=== PATIENT | female | born 1960 | race Caucasian/White ===

== ENCOUNTER 2020-07-09 17:48 | Inpatient (IN) ==
[2020-07-09 18:27] LABS: Bilirubin,Urine Negative (Negative); Blood,Urine Negative (Negative); Clarity,Urine Clear (Clear); Color,Urine Yellow (Yellow); Glucose,Urine (UA) Normal (Normal); Ketones,Urine Negative (Negative); Leukocyte Esterase,Urine Negative (Negative); Nitrite,Urine Negative (Negative); Protein,Urine Negative (Neg-Trace); Specific Gravity,Urine >= 1.030 (1.010-1.025); Urobilinogen,Urine Normal (Normal)
[2020-07-09 18:34] LABS: Amphetamine Screen,Urine Negative ng/mL (Cutoff=1000); Barbiturate Screen,Urine Negative ng/mL (Cutoff=200); Benzodiazepines Screen,Urine Negative ng/mL (Cutoff=200); Cannabinoid Screen,Urine Negative ng/mL (Cutoff = 50); Cocaine Screen,Urine Negative ng/mL (Cutoff= 300); Opiate Screen,Urine Negative ng/mL (Cutoff=300); Phencyclidine Screen,Urine Negative ng/mL (Cutoff=25)
[2020-07-09 18:58] LABS: Acetaminophen < 10 mcg/mL (10-20); BUN/Creatinine Ratio 32 (6-26); Blood Urea Nitrogen 19 mg/dL (8-23); Carbon Dioxide 22 mEq/L (23-29); Chloride 107 mEq/L (98-107); Chol/HDL Ratio 3.8 (0-4.9); Cholesterol 172 mg/dL (< 200); Ethanol < 10 mg/dL (Less than 10); Glucose 100 mg/dL (70-105); HDL Cholesterol 45 mg/dL (40-59); LDL Cholesterol,Calculated 90 mg/dL (< 100); Osmolality,Calculated 290 (280-300); Potassium 4.1 mEq/L (3.5-5.1); Salicylate < 2.5 mg/dL (15.0-30.0); Sodium 139 mEq/L (136-145); Triglycerides 183 mg/dL (< 150); eGFR For African Americans > 60 (> 60); eGFR For Non-African Americans > 60 (> 60)
[2020-07-09 21:10] LABS: Red Cell Distribution Width 13.8 % (11.5-14.5)
[2020-07-09 21:12] LABS: Basophils # 0.1 K/mcL (0.0-0.2); Basophils % 0.8 %; Eosinophils # 0.1 K/mcL (0.0-0.6); Eosinophils % 1.4 %; Hematocrit 46.2 % (35.3-44.9); Hemoglobin 14.6 g/dL (11.5-15.4); Immature Granulocytes % 0.2 % (0-4); Lymphocytes # 1.7 K/mcL (0.6-4.6); Lymphocytes % 24.8 %; Mean Corpuscular HGB Conc 31.6 g/dL (31.6-35.5); Mean Corpuscular Hemoglobin 28.3 pg (28.0-33.3); Mean Corpuscular Volume 89.5 fL (83.0-100.0); Mean Platelet Volume 9.7 fL (9.4-12.4); Monocytes # 0.4 K/mcL (0.0-1.3); Monocytes % 5.9 %; Neutrophils # 4.5 K/mcL (1.6-8.9); Red Blood Count 5.16 M/mcL (3.82-4.97); Segmented Neutrophils % 66.9 %; White Blood Count 6.7 K/mcL (4.3-11.1)
[2020-07-09] MEDS ORDERED: *HR* LORazepam 1 MG TABLET PO PRN (23:31)
[2020-07-09] MEDS ORDERED: Haloperidol Lactate 5 MG/ML VIAL IM PRN (23:31)
[2020-07-09] MEDS ORDERED: *HR* LORazepam 2 MG/ML VIAL IM PRN (23:31)
[2020-07-09] MEDS ORDERED: Acetaminophen 325 MG TABLET PO PRN (23:31)
[2020-07-09] MEDS ORDERED: MOM Conc 10 ML UD.LIQ PO PRN (23:31)
[2020-07-09] MEDS ORDERED: haloperidoL 5 MG TABLET PO PRN (23:31)
[2020-07-09] MEDS ORDERED: hydrOXYzine pamoate 25 MG CAPSULE PO PRN (23:31)
[2020-07-10] MEDS ORDERED: Ibuprofen 400 MG TABLET PO PRN (00:29)
[2020-07-10] MEDS: *HR* Metformin 500 MG TABLET PO SCH ×2 (08:47→17:25)
[2020-07-10] MEDS: Aspirin 81 MG TAB.CHEW PO SCH (08:47)
[2020-07-10] MEDS: Fenofibrate 54 MG TABLET PO SCH (08:48)
[2020-07-10] MEDS: lisinopriL 5 MG TABLET PO SCH (08:50)
[2020-07-10 11:00] LABS: Estimated Average Glucose 140 mg/dl
[2020-07-11] MEDS: Aspirin 81 MG TAB.CHEW PO SCH (08:42)
[2020-07-11] MEDS: Fenofibrate 54 MG TABLET PO SCH (08:42)
[2020-07-11] MEDS: *HR* Metformin 500 MG TABLET PO SCH ×2 (08:42→17:33)
[2020-07-11] MEDS: lisinopriL 5 MG TABLET PO SCH (08:42)
[2020-07-11] MEDS: traZODone 50 MG TABLET PO PRN (20:54)
[2020-07-12] MEDS: Fenofibrate 54 MG TABLET PO SCH (08:11)
[2020-07-12] MEDS: Aspirin 81 MG TAB.CHEW PO SCH (08:11)
[2020-07-12] MEDS: *HR* Metformin 500 MG TABLET PO SCH ×2 (08:11→17:16)
[2020-07-12] MEDS: lisinopriL 5 MG TABLET PO SCH (08:11)
[2020-07-12] MEDS: traZODone 50 MG TABLET PO PRN (21:22)
[2020-07-13] MEDS: Aspirin 81 MG TAB.CHEW PO SCH (08:51)
[2020-07-13] MEDS: *HR* Metformin 500 MG TABLET PO SCH (08:51)
[2020-07-13] MEDS: lisinopriL 5 MG TABLET PO SCH (08:51)
[2020-07-13] MEDS: Fenofibrate 54 MG TABLET PO SCH (08:51)
[2020-07-13 09:25] VITALS: BP 111/64
[2020-07-13 09:31] LABS: Albumin 4.5 g/dL (3.5-5.7); Albumin/Globulin Ratio 1.7 (1.1-2.2); Bilirubin,Direct 0.1 mg/dL (0.0-0.2); Bilirubin,Indirect 0.6 mg/dL (0.0-1.0); Bilirubin,Total 0.7 mg/dL (0.3-1.0); Globulin 2.7 g/dL (2.4-3.5); Total Protein 7.2 g/dL (6.4-8.9)
== END 2020-07-13 12:10 | disposition home or self-care (01) | DRG 885 ==
LOC: EMEROOARM 17:48 → SUATTDRO 23:30 → 1ANU 23:30
PROVIDERS: ADMIT Psychiatry & Neurology Psychiatry; ATTEND Psychiatry & Neurology Forensic Psychiatry

== ENCOUNTER 2021-10-19 16:51 | Inpatient (IN) ==
[2021-10-19] MEDS ORDERED: Naloxone 0.4 MG/ML INJ IVP PRN (20:57)
[2021-10-19] MEDS ORDERED: Ondansetron 4 MG/2 ML VIAL IVP PRN (20:57)
[2021-10-19] MEDS ORDERED: Acetaminophen 325 MG TABLET PO PRN (20:57)
[2021-10-19] MEDS ORDERED: Melatonin 3 MG TABLET PO PRN (20:57)
[2021-10-19] MEDS: Dexamethasone Sodium Phos/PF 10 MG/ML VIAL IVP SCH (21:34)
[2021-10-19 22:04] LABS: Basophils % 0.7 %; Hematocrit 47.5 % (35.3-44.9); Hemoglobin 14.5 g/dL (11.5-15.4); Immature Granulocytes % 0.4 % (0-4); Lymphocytes # 0.6 K/mcL (0.6-4.6); Lymphocytes % 23.4 %; Mean Corpuscular HGB Conc 30.5 g/dL (31.6-35.5); Mean Corpuscular Hemoglobin 26.9 pg (28.0-33.3); Mean Corpuscular Volume 88.1 fL (83.0-100.0); Mean Platelet Volume 11.1 fL (9.4-12.4); Monocytes # 0.1 K/mcL (0.0-1.3); Monocytes % 3.3 %; Nucleated Red Blood Cells 0.7 /100 WBC (0); Platelet Count 125 K/mcL (140-400); Red Blood Count 5.39 M/mcL (3.82-4.97); Red Cell Distribution Width 14.4 % (11.5-14.5); Segmented Neutrophils % 72.2 %; White Blood Count 2.7 K/mcL (4.3-11.1)
[2021-10-19 22:12] LABS: INR 1.3; Prothrombin Time 14.3 Seconds (9.4-12.1)
[2021-10-19 22:19] LABS: Alanine Aminotransferase 22 Units/L (7-52); Albumin 3.8 g/dL (3.5-5.7); Albumin/Globulin Ratio 1.3 (1.1-2.2); Alkaline Phosphatase 35 Units/L (34-104); Aspartate Amino Transferase 31 Units/L (13-39); BUN/Creatinine Ratio 29 (6-26); Bilirubin,Total 0.9 mg/dL (0.3-1.0); Blood Urea Nitrogen 18 mg/dL (8-23); Calcium 9.1 mg/dL (8.6-10.3); Carbon Dioxide 26 mEq/L (23-29); Chloride 107 mEq/L (98-107); Globulin 2.9 g/dL (2.4-3.5); Glucose 140 mg/dL (70-105); Magnesium 2.2 mg/dL (1.6-2.6); Osmolality,Calculated 296 (280-300); Phosphorous 3.1 mg/dL (2.7-4.5); Potassium 4.3 mEq/L (3.5-5.1); Sodium 141 mEq/L (136-145); Total Protein 6.7 g/dL (6.4-8.9); eGFR For African Americans > 60 (> 60); eGFR For Non-African Americans > 60 (> 60)
[2021-10-19 22:20] LABS: C-Reactive Protein 35 mg/L (Less than 10); Lactate Dehydrogenase 281 Units/L (140-271); Troponin I < 0.03 ng/mL (< 0.04)
[2021-10-19 22:28] LABS: Platelet Clumps Few (Not Present); Platelet Estimate Normal (Normal)
[2021-10-19 22:39] LABS: Ferritin 292 ng/mL (10-120)
[2021-10-19] MEDS: Budesonide/Formoterol 160/4.5 1 PUFF INH IH SCH (23:47)
[2021-10-20] MEDS: Ipratropium 1 PUFF INHALER IH SCH ×6 (00:06→20:28)
[2021-10-20 03:26] LABS: INR 1.2; Prothrombin Time 13.7 Seconds (9.4-12.1)
[2021-10-20 03:27] LABS: C-Reactive Protein 29 mg/L (Less than 10); Chol/HDL Ratio 4.1 (0-4.9); Cholesterol 103 mg/dL (< 200); HDL Cholesterol 25 mg/dL (40-59); LDL Cholesterol,Calculated 59 mg/dL (< 100); Lactate Dehydrogenase 256 Units/L (140-271); Phosphorous 3.7 mg/dL (2.7-4.5); Triglycerides 96 mg/dL (< 150)
[2021-10-20] MEDS ORDERED: Remdesivir 200 MG in 0.9 % Sodium Chloride 100 ML IVPB ONE (04:00)
[2021-10-20 04:27] LABS: ABG Base Excess -3 mEq/L (-2 to 3); ABG HCO3 22 mEq/L (21-27); ABG Oxygen Saturation 92 % (95-98); ABG PCO2 38 mmHg (35-45); ABG PH 7.38 pH Units (7.32-7.45); ABG PO2 65 mmHg (85-104); ABG TCO2 23 mEq/L (20-26)
[2021-10-20] MEDS: *HR* Enoxaparin 40 MG/0.4 ML SYRINGE SQ SCH (04:56)
[2021-10-20 07:45] LABS: Alanine Aminotransferase 22 Units/L (7-52); Albumin 3.4 g/dL (3.5-5.7); Albumin/Globulin Ratio 1.2 (1.1-2.2); Alkaline Phosphatase 32 Units/L (34-104); Aspartate Amino Transferase 28 Units/L (13-39); BUN/Creatinine Ratio 28 (6-26); Bilirubin,Total 0.7 mg/dL (0.3-1.0); Blood Urea Nitrogen 21 mg/dL (8-23); Calcium 8.7 mg/dL (8.6-10.3); Carbon Dioxide 21 mEq/L (23-29); Chloride 108 mEq/L (98-107); Globulin 2.9 g/dL (2.4-3.5); Glucose 246 mg/dL (70-105); Osmolality,Calculated 305 (280-300); Potassium 3.9 mEq/L (3.5-5.1); Sodium 142 mEq/L (136-145); Total Protein 6.3 g/dL (6.4-8.9); eGFR For African Americans > 60 (> 60); eGFR For Non-African Americans > 60 (> 60)
[2021-10-20] MEDS: Artificial Tears SOLN 15 ML BOTTLE BOTH EYES SCH ×4 (07:50→20:15)
[2021-10-20] MEDS: Dexamethasone Sodium Phos/PF 10 MG/ML VIAL IVP SCH (07:51)
[2021-10-20] MEDS: Multivit/Ca/Min/Fe/FA 1 TAB TABLET PO SCH (07:51)
[2021-10-20] MEDS: Insulin LISPRO 300 UNITS/3 ML VIAL SUBQ SCH ×3 (07:52→17:50)
[2021-10-20] MEDS: Saliva Stimulant 44.3ml BOTTLE PO SCH ×4 (07:52→20:16)
[2021-10-20] MEDS: Saline Nasal Spray 44 ML BOTTLE NS SCH ×4 (07:52→20:15)
[2021-10-20] MEDS: Budesonide/Formoterol 160/4.5 1 PUFF INH IH SCH ×2 (08:20→20:29)
[2021-10-20] MEDS ORDERED: Chlorhexidine Rinse 15 ML MOUTHWASH MM SCH (09:00)
[2021-10-20 09:36] LABS: Ferritin 290 ng/mL (10-120)
[2021-10-20 09:58] LABS: Estimated Average Glucose 148 mg/dl; Hemoglobin A1C 6.8 %
[2021-10-20] MEDS ORDERED: Furosemide 20 MG/2 ML VIAL IVP ONE (19:34)
[2021-10-21] MEDS: Ipratropium 1 PUFF INHALER IH SCH ×6 (00:24→20:38)
[2021-10-21] MEDS: Remdesivir 100 MG in 0.9 % Sodium Chloride 100 ML IVPB SCH (04:45)
[2021-10-21] MEDS: *HR* Enoxaparin 40 MG/0.4 ML SYRINGE SQ SCH (05:04)
[2021-10-21 05:36] LABS: Basophils % 0.3 %; Hematocrit 42.6 % (35.3-44.9); Hemoglobin 13.2 g/dL (11.5-15.4); Immature Granulocytes % 0.7 % (0-4); Immature Platelets 15.4 % (1.1-6.1); Lymphocytes # 0.7 K/mcL (0.6-4.6); Lymphocytes % 11.9 %; Mean Corpuscular Hemoglobin 27.6 pg (28.0-33.3); Mean Corpuscular Volume 89.1 fL (83.0-100.0); Mean Platelet Volume 11.7 fL (9.4-12.4); Monocytes # 0.5 K/mcL (0.0-1.3); Monocytes % 7.9 %; Red Blood Count 4.78 M/mcL (3.82-4.97); Red Cell Distribution Width 14.3 % (11.5-14.5); Segmented Neutrophils % 79.2 %
[2021-10-21 05:46] LABS: Fibrinogen 485 mg/dL (169-393)
[2021-10-21 05:47] LABS: D-Dimer 370 ng/mLFEU (0-500)
[2021-10-21 05:53] LABS: Alanine Aminotransferase 21 Units/L (7-52); Albumin 3.4 g/dL (3.5-5.7); Albumin/Globulin Ratio 1.3 (1.1-2.2); Alkaline Phosphatase 30 Units/L (34-104); Aspartate Amino Transferase 21 Units/L (13-39); BUN/Creatinine Ratio 39 (6-26); Bilirubin,Total 0.5 mg/dL (0.3-1.0); Blood Urea Nitrogen 28 mg/dL (8-23); Calcium 8.9 mg/dL (8.6-10.3); Carbon Dioxide 26 mEq/L (23-29); Chloride 110 mEq/L (98-107); Globulin 2.7 g/dL (2.4-3.5); Glucose 182 mg/dL (70-105); Osmolality,Calculated 310 (280-300); Potassium 3.8 mEq/L (3.5-5.1); Sodium 145 mEq/L (136-145); Total Protein 6.1 g/dL (6.4-8.9); eGFR For African Americans > 60 (> 60); eGFR For Non-African Americans > 60 (> 60)
[2021-10-21 05:54] LABS: Magnesium 2.2 mg/dL (1.6-2.6); Phosphorous 3.7 mg/dL (2.7-4.5)
[2021-10-21 05:55] LABS: Neutrophils # 4.8 K/mcL (1.6-8.9)
[2021-10-21 05:57] LABS: Lactate Dehydrogenase 229 Units/L (140-271)
[2021-10-21 05:59] LABS: Anisocytosis 1+ (Not Present)
[2021-10-21 07:21] LABS: Mean Platelet Volume 10.4 fL (9.4-12.4)
[2021-10-21] MEDS: Budesonide/Formoterol 160/4.5 1 PUFF INH IH SCH ×2 (07:38→20:37)
[2021-10-21] MEDS: Cholecalciferol (D-3) 1,000 UNIT (25MCG) TABLET PO SCH (08:57)
[2021-10-21] MEDS: Insulin LISPRO 300 UNITS/3 ML VIAL SUBQ SCH ×3 (08:57→17:14)
[2021-10-21] MEDS: Aspirin 81 MG TAB.CHEW PO SCH (08:57)
[2021-10-21] MEDS: Furosemide 20 MG/2 ML VIAL IVP SCH (08:58)
[2021-10-21] MEDS: Multivit/Ca/Min/Fe/FA 1 TAB TABLET PO SCH (08:58)
[2021-10-21] MEDS: Dexamethasone Sodium Phos/PF 10 MG/ML VIAL IVP SCH (08:58)
[2021-10-21] MEDS ORDERED: lisinopriL 5 MG TABLET PO SCH (09:00)
[2021-10-21] MEDS: Saliva Stimulant 44.3ml BOTTLE PO SCH ×3 (11:50→20:04)
[2021-10-21] MEDS: Saline Nasal Spray 44 ML BOTTLE NS SCH ×3 (11:50→20:04)
[2021-10-21] MEDS: Artificial Tears SOLN 15 ML BOTTLE BOTH EYES SCH ×3 (11:50→20:04)
[2021-10-21 12:49] LABS: Ferritin 231 ng/mL (10-120)
[2021-10-22] MEDS: Ipratropium 1 PUFF INHALER IH SCH ×7 (00:28→23:54)
[2021-10-22] MEDS ORDERED: Ringers Solution, Lactated 500 ML IVC ONE (01:15)
[2021-10-22 02:49] LABS: Alanine Aminotransferase 20 Units/L (7-52); Albumin 3.2 g/dL (3.5-5.7); Albumin/Globulin Ratio 1.2 (1.1-2.2); Alkaline Phosphatase 26 Units/L (34-104); Aspartate Amino Transferase 17 Units/L (13-39); BUN/Creatinine Ratio 52 (6-26); Bilirubin,Total 0.6 mg/dL (0.3-1.0); Blood Urea Nitrogen 30 mg/dL (8-23); Calcium 8.5 mg/dL (8.6-10.3); Carbon Dioxide 27 mEq/L (23-29); Chloride 111 mEq/L (98-107); Globulin 2.6 g/dL (2.4-3.5); Glucose 169 mg/dL (70-105); Osmolality,Calculated 310 (280-300); Potassium 3.6 mEq/L (3.5-5.1); Sodium 145 mEq/L (136-145); Total Protein 5.8 g/dL (6.4-8.9); eGFR For African Americans > 60 (> 60); eGFR For Non-African Americans > 60 (> 60)
[2021-10-22] MEDS: *HR* Enoxaparin 40 MG/0.4 ML SYRINGE SQ SCH (05:07)
[2021-10-22] MEDS: Remdesivir 100 MG in 0.9 % Sodium Chloride 100 ML IVPB SCH (05:08)
[2021-10-22] MEDS: Multivit/Ca/Min/Fe/FA 1 TAB TABLET PO SCH (08:09)
[2021-10-22] MEDS: Dexamethasone Sodium Phos/PF 10 MG/ML VIAL IVP SCH (08:09)
[2021-10-22] MEDS: Aspirin 81 MG TAB.CHEW PO SCH (08:09)
[2021-10-22] MEDS: Cholecalciferol (D-3) 1,000 UNIT (25MCG) TABLET PO SCH (08:09)
[2021-10-22] MEDS: Insulin LISPRO 300 UNITS/3 ML VIAL SUBQ SCH ×3 (08:10→15:41)
[2021-10-22] MEDS: Artificial Tears SOLN 15 ML BOTTLE BOTH EYES SCH ×4 (08:10→21:45)
[2021-10-22] MEDS: Saliva Stimulant 44.3ml BOTTLE PO SCH ×4 (08:11→21:46)
[2021-10-22] MEDS: Saline Nasal Spray 44 ML BOTTLE NS SCH ×4 (08:11→21:46)
[2021-10-22] MEDS: Budesonide/Formoterol 160/4.5 1 PUFF INH IH SCH ×2 (08:14→20:08)
[2021-10-23] MEDS: Ipratropium 1 PUFF INHALER IH SCH ×6 (03:57→23:52)
[2021-10-23] MEDS: Remdesivir 100 MG in 0.9 % Sodium Chloride 100 ML IVPB SCH (04:03)
[2021-10-23] MEDS: *HR* Enoxaparin 40 MG/0.4 ML SYRINGE SQ SCH (05:28)
[2021-10-23] MEDS: Artificial Tears SOLN 15 ML BOTTLE BOTH EYES SCH ×4 (07:18→19:17)
[2021-10-23] MEDS: Saline Nasal Spray 44 ML BOTTLE NS SCH ×4 (07:18→19:17)
[2021-10-23] MEDS: Aspirin 81 MG TAB.CHEW PO SCH (07:19)
[2021-10-23] MEDS: Saliva Stimulant 44.3ml BOTTLE PO SCH ×4 (07:19→19:17)
[2021-10-23] MEDS: Dexamethasone Sodium Phos/PF 10 MG/ML VIAL IVP SCH (07:20)
[2021-10-23] MEDS: Cholecalciferol (D-3) 1,000 UNIT (25MCG) TABLET PO SCH (07:20)
[2021-10-23] MEDS: Multivit/Ca/Min/Fe/FA 1 TAB TABLET PO SCH (07:21)
[2021-10-23] MEDS: Budesonide/Formoterol 160/4.5 1 PUFF INH IH SCH ×2 (08:14→20:33)
[2021-10-23] MEDS: Insulin LISPRO 300 UNITS/3 ML VIAL SUBQ SCH ×3 (08:44→16:27)
[2021-10-24] MEDS: Remdesivir 100 MG in 0.9 % Sodium Chloride 100 ML IVPB SCH (04:11)
[2021-10-24] MEDS: Ipratropium 1 PUFF INHALER IH SCH ×5 (04:49→20:41)
[2021-10-24] MEDS: *HR* Enoxaparin 40 MG/0.4 ML SYRINGE SQ SCH (05:07)
[2021-10-24 08:00] LABS: Monocytes % 7.4 %; Red Cell Distribution Width 14.6 % (11.5-14.5)
[2021-10-24 08:03] LABS: Basophils % 0.2 %; Hematocrit 38.9 % (35.3-44.9); Hemoglobin 12.1 g/dL (11.5-15.4); Immature Granulocytes % 2.2 % (0-4); Lymphocytes # 0.5 K/mcL (0.6-4.6); Lymphocytes % 5.3 %; Mean Corpuscular HGB Conc 31.1 g/dL (31.6-35.5); Mean Corpuscular Hemoglobin 27.8 pg (28.0-33.3); Mean Corpuscular Volume 89.2 fL (83.0-100.0); Mean Platelet Volume 10.9 fL (9.4-12.4); Monocytes # 0.7 K/mcL (0.0-1.3); Neutrophils # 7.9 K/mcL (1.6-8.9); Red Blood Count 4.36 M/mcL (3.82-4.97); Segmented Neutrophils % 84.9 %; White Blood Count 9.3 K/mcL (4.3-11.1)
[2021-10-24 08:10] LABS: Alanine Aminotransferase 28 Units/L (7-52); Albumin 3.1 g/dL (3.5-5.7); Albumin/Globulin Ratio 1.5 (1.1-2.2); Alkaline Phosphatase 29 Units/L (34-104); Aspartate Amino Transferase 23 Units/L (13-39); BUN/Creatinine Ratio 49 (6-26); Bilirubin,Total 0.8 mg/dL (0.3-1.0); Blood Urea Nitrogen 24 mg/dL (8-23); Calcium 7.9 mg/dL (8.6-10.3); Carbon Dioxide 27 mEq/L (23-29); Chloride 110 mEq/L (98-107); Globulin 2.1 g/dL (2.4-3.5); Glucose 125 mg/dL (70-105); Magnesium 2.2 mg/dL (1.6-2.6); Osmolality,Calculated 302 (280-300); Potassium 3.8 mEq/L (3.5-5.1); Sodium 143 mEq/L (136-145); Total Protein 5.2 g/dL (6.4-8.9); eGFR For African Americans > 60 (> 60); eGFR For Non-African Americans > 60 (> 60)
[2021-10-24 08:25] LABS: Ferritin 186 ng/mL (10-120)
[2021-10-24 08:33] LABS: Fibrinogen 254 mg/dL (169-393)
[2021-10-24] MEDS: Budesonide/Formoterol 160/4.5 1 PUFF INH IH SCH ×2 (08:35→20:41)
[2021-10-24 08:37] LABS: D-Dimer 493 ng/mLFEU (0-500)
[2021-10-24] MEDS: Insulin LISPRO 300 UNITS/3 ML VIAL SUBQ SCH ×3 (08:39→16:57)
[2021-10-24] MEDS: Dexamethasone Sodium Phos/PF 10 MG/ML VIAL IVP SCH (08:41)
[2021-10-24] MEDS: Aspirin 81 MG TAB.CHEW PO SCH (08:42)
[2021-10-24] MEDS: Saliva Stimulant 44.3ml BOTTLE PO SCH ×4 (08:42→19:42)
[2021-10-24] MEDS: Cholecalciferol (D-3) 1,000 UNIT (25MCG) TABLET PO SCH (08:42)
[2021-10-24] MEDS: Multivit/Ca/Min/Fe/FA 1 TAB TABLET PO SCH (08:42)
[2021-10-24] MEDS: Furosemide 20 MG/2 ML VIAL IVP SCH (08:43)
[2021-10-24] MEDS: Artificial Tears SOLN 15 ML BOTTLE BOTH EYES SCH ×4 (08:43→19:42)
[2021-10-24] MEDS: Saline Nasal Spray 44 ML BOTTLE NS SCH ×4 (08:43→19:42)
[2021-10-24 10:35] LABS: Mean Platelet Volume 9.8 fL (9.4-12.4)
[2021-10-25] MEDS: Ipratropium 1 PUFF INHALER IH SCH ×7 (00:02→23:27)
[2021-10-25] MEDS: *HR* Enoxaparin 40 MG/0.4 ML SYRINGE SQ SCH (05:16)
[2021-10-25] MEDS: Budesonide/Formoterol 160/4.5 1 PUFF INH IH SCH ×2 (07:47→20:25)
[2021-10-25] MEDS: Aspirin 81 MG TAB.CHEW PO SCH (08:09)
[2021-10-25] MEDS: Cholecalciferol (D-3) 1,000 UNIT (25MCG) TABLET PO SCH (08:09)
[2021-10-25] MEDS: Multivit/Ca/Min/Fe/FA 1 TAB TABLET PO SCH (08:09)
[2021-10-25] MEDS: Dexamethasone Sodium Phos/PF 10 MG/ML VIAL IVP SCH (08:10)
[2021-10-25] MEDS: Saliva Stimulant 44.3ml BOTTLE PO SCH ×4 (08:10→23:27)
[2021-10-25] MEDS: Artificial Tears SOLN 15 ML BOTTLE BOTH EYES SCH ×4 (08:10→23:27)
[2021-10-25] MEDS: Furosemide 20 MG/2 ML VIAL IVP SCH (08:10)
[2021-10-25] MEDS: Saline Nasal Spray 44 ML BOTTLE NS SCH ×4 (08:10→23:27)
[2021-10-25] MEDS: Insulin LISPRO 300 UNITS/3 ML VIAL SUBQ SCH ×3 (08:11→16:29)
[2021-10-26 01:36] LABS: Basophils % 0.4 %; Hematocrit 41.3 % (35.3-44.9); Hemoglobin 12.9 g/dL (11.5-15.4); Immature Granulocytes % 3.2 % (0-4); Lymphocytes # 0.4 K/mcL (0.6-4.6); Lymphocytes % 5.4 %; Mean Corpuscular HGB Conc 31.2 g/dL (31.6-35.5); Mean Corpuscular Hemoglobin 27.6 pg (28.0-33.3); Mean Corpuscular Volume 88.4 fL (83.0-100.0); Mean Platelet Volume 10.8 fL (9.4-12.4); Monocytes # 0.7 K/mcL (0.0-1.3); Monocytes % 8.6 %; Neutrophils # 6.4 K/mcL (1.6-8.9); Red Blood Count 4.67 M/mcL (3.82-4.97); Red Cell Distribution Width 14.6 % (11.5-14.5); Segmented Neutrophils % 82.4 %; White Blood Count 7.8 K/mcL (4.3-11.1)
[2021-10-26 01:57] LABS: BUN/Creatinine Ratio 41 (6-26); Blood Urea Nitrogen 23 mg/dL (8-23); Calcium 8.4 mg/dL (8.6-10.3); Carbon Dioxide 27 mEq/L (23-29); Chloride 108 mEq/L (98-107); Glucose 186 mg/dL (70-105); Magnesium 2.2 mg/dL (1.6-2.6); Osmolality,Calculated 301 (280-300); Phosphorous 3.2 mg/dL (2.7-4.5); Sodium 141 mEq/L (136-145); eGFR For African Americans > 60 (> 60); eGFR For Non-African Americans > 60 (> 60)
[2021-10-26 03:07] LABS: Mean Platelet Volume 10.2 fL (9.4-12.4)
[2021-10-26] MEDS: Ipratropium 1 PUFF INHALER IH SCH ×5 (03:48→20:21)
[2021-10-26] MEDS: *HR* Enoxaparin 40 MG/0.4 ML SYRINGE SQ SCH (05:32)
[2021-10-26] MEDS: Budesonide/Formoterol 160/4.5 1 PUFF INH IH SCH ×2 (08:13→20:21)
[2021-10-26] MEDS: Cholecalciferol (D-3) 1,000 UNIT (25MCG) TABLET PO SCH (10:52)
[2021-10-26] MEDS: Multivit/Ca/Min/Fe/FA 1 TAB TABLET PO SCH (10:52)
[2021-10-26] MEDS: Aspirin 81 MG TAB.CHEW PO SCH (10:52)
[2021-10-26] MEDS: Insulin LISPRO 300 UNITS/3 ML VIAL SUBQ SCH ×3 (10:53→18:10)
[2021-10-26] MEDS: Artificial Tears SOLN 15 ML BOTTLE BOTH EYES SCH ×4 (10:53→19:51)
[2021-10-26] MEDS: Saline Nasal Spray 44 ML BOTTLE NS SCH ×4 (10:53→19:52)
[2021-10-26] MEDS: Dexamethasone Sodium Phos/PF 10 MG/ML VIAL IVP SCH (10:53)
[2021-10-26] MEDS: Furosemide 20 MG/2 ML VIAL IVP SCH (10:53)
[2021-10-26] MEDS: Saliva Stimulant 44.3ml BOTTLE PO SCH ×4 (10:53→19:51)
[2021-10-27] MEDS: Ipratropium 1 PUFF INHALER IH SCH ×6 (00:19→20:39)
[2021-10-27] MEDS: *HR* Enoxaparin 40 MG/0.4 ML SYRINGE SQ SCH (05:45)
[2021-10-27 07:11] LABS: Basophils % 0.4 %; Eosinophils % 0.1 %; Hematocrit 44.6 % (35.3-44.9); Lymphocytes # 0.5 K/mcL (0.6-4.6); Lymphocytes % 7.1 %; Mean Corpuscular HGB Conc 31.4 g/dL (31.6-35.5); Mean Corpuscular Volume 89.2 fL (83.0-100.0); Mean Platelet Volume 10.9 fL (9.4-12.4); Monocytes # 0.5 K/mcL (0.0-1.3); Monocytes % 7.3 %; Platelet Count 181 K/mcL (140-400); Red Cell Distribution Width 14.9 % (11.5-14.5); Segmented Neutrophils % 82.1 %; White Blood Count 7.4 K/mcL (4.3-11.1)
[2021-10-27] MEDS: Budesonide/Formoterol 160/4.5 1 PUFF INH IH SCH ×2 (07:45→20:38)
[2021-10-27 08:25] LABS: Alanine Aminotransferase 37 Units/L (7-52); Albumin 3.4 g/dL (3.5-5.7); Albumin/Globulin Ratio 1.4 (1.1-2.2); Alkaline Phosphatase 33 Units/L (34-104); Aspartate Amino Transferase 20 Units/L (13-39); BUN/Creatinine Ratio 43 (6-26); Blood Urea Nitrogen 23 mg/dL (8-23); Calcium 8.7 mg/dL (8.6-10.3); Carbon Dioxide 31 mEq/L (23-29); Chloride 107 mEq/L (98-107); Globulin 2.5 g/dL (2.4-3.5); Glucose 113 mg/dL (70-105); Osmolality,Calculated 302 (280-300); Potassium 3.8 mEq/L (3.5-5.1); Sodium 144 mEq/L (136-145); Total Protein 5.9 g/dL (6.4-8.9); eGFR For African Americans > 60 (> 60); eGFR For Non-African Americans > 60 (> 60)
[2021-10-27] MEDS: Saliva Stimulant 44.3ml BOTTLE PO SCH ×4 (09:43→21:47)
[2021-10-27] MEDS: Insulin LISPRO 300 UNITS/3 ML VIAL SUBQ SCH ×3 (09:43→17:27)
[2021-10-27] MEDS: Artificial Tears SOLN 15 ML BOTTLE BOTH EYES SCH ×4 (09:44→21:47)
[2021-10-27] MEDS: Saline Nasal Spray 44 ML BOTTLE NS SCH ×4 (09:45→21:47)
[2021-10-27] MEDS: Dexamethasone Sodium Phos/PF 10 MG/ML VIAL IVP SCH (09:47)
[2021-10-27] MEDS: Multivit/Ca/Min/Fe/FA 1 TAB TABLET PO SCH (09:48)
[2021-10-27] MEDS: Furosemide 20 MG/2 ML VIAL IVP SCH (09:48)
[2021-10-27] MEDS: Cholecalciferol (D-3) 1,000 UNIT (25MCG) TABLET PO SCH (09:48)
[2021-10-27] MEDS: Aspirin 81 MG TAB.CHEW PO SCH (12:34)
[2021-10-28] MEDS: Ipratropium 1 PUFF INHALER IH SCH ×7 (00:08→23:40)
[2021-10-28 06:04] LABS: Alanine Aminotransferase 36 Units/L (7-52); Albumin 3.3 g/dL (3.5-5.7); Albumin/Globulin Ratio 1.4 (1.1-2.2); Alkaline Phosphatase 30 Units/L (34-104); Aspartate Amino Transferase 17 Units/L (13-39); BUN/Creatinine Ratio 38 (6-26); Bilirubin,Total 0.9 mg/dL (0.3-1.0); Blood Urea Nitrogen 24 mg/dL (8-23); Calcium 8.6 mg/dL (8.6-10.3); Carbon Dioxide 31 mEq/L (23-29); Chloride 106 mEq/L (98-107); Globulin 2.4 g/dL (2.4-3.5); Glucose 114 mg/dL (70-105); Osmolality,Calculated 299 (280-300); Potassium 4.5 mEq/L (3.5-5.1); Sodium 142 mEq/L (136-145); Total Protein 5.7 g/dL (6.4-8.9); eGFR For African Americans > 60 (> 60); eGFR For Non-African Americans > 60 (> 60)
[2021-10-28 06:16] LABS: Basophils % 0.4 %; Eosinophils % 0.1 %; Hematocrit 44.5 % (35.3-44.9); Hemoglobin 13.4 g/dL (11.5-15.4); Immature Granulocytes % 3.1 % (0-4); Lymphocytes # 0.6 K/mcL (0.6-4.6); Lymphocytes % 6.4 %; Mean Corpuscular HGB Conc 30.1 g/dL (31.6-35.5); Mean Corpuscular Hemoglobin 26.7 pg (28.0-33.3); Mean Corpuscular Volume 88.8 fL (83.0-100.0); Mean Platelet Volume 10.9 fL (9.4-12.4); Monocytes # 0.7 K/mcL (0.0-1.3); Monocytes % 7.7 %; Neutrophils # 7.6 K/mcL (1.6-8.9); Platelet Count 136 K/mcL (140-400); Red Blood Count 5.01 M/mcL (3.82-4.97); Segmented Neutrophils % 82.3 %; White Blood Count 9.2 K/mcL (4.3-11.1)
[2021-10-28] MEDS: *HR* Enoxaparin 40 MG/0.4 ML SYRINGE SQ SCH (06:26)
[2021-10-28] MEDS: Insulin LISPRO 300 UNITS/3 ML VIAL SUBQ SCH ×3 (08:28→16:38)
[2021-10-28] MEDS: Budesonide/Formoterol 160/4.5 1 PUFF INH IH SCH ×2 (08:47→19:48)
[2021-10-28] MEDS: Multivit/Ca/Min/Fe/FA 1 TAB TABLET PO SCH (09:08)
[2021-10-28] MEDS: Aspirin 81 MG TAB.CHEW PO SCH (09:08)
[2021-10-28] MEDS: Cholecalciferol (D-3) 1,000 UNIT (25MCG) TABLET PO SCH (09:08)
[2021-10-28] MEDS: Furosemide 20 MG/2 ML VIAL IVP SCH (09:09)
[2021-10-28] MEDS: Dexamethasone Sodium Phos/PF 10 MG/ML VIAL IVP SCH (09:12)
[2021-10-28] MEDS: Saline Nasal Spray 44 ML BOTTLE NS SCH ×4 (09:14→19:39)
[2021-10-28] MEDS: Artificial Tears SOLN 15 ML BOTTLE BOTH EYES SCH ×4 (09:14→19:39)
[2021-10-28] MEDS: Saliva Stimulant 44.3ml BOTTLE PO SCH ×4 (09:15→19:39)
[2021-10-29 02:56] LABS: Basophils % 0.4 %; Eosinophils % 0.1 %; Hematocrit 43.2 % (35.3-44.9); Hemoglobin 13.3 g/dL (11.5-15.4); Lymphocytes # 0.6 K/mcL (0.6-4.6); Mean Corpuscular HGB Conc 30.8 g/dL (31.6-35.5); Mean Corpuscular Hemoglobin 27.3 pg (28.0-33.3); Mean Corpuscular Volume 88.5 fL (83.0-100.0); Mean Platelet Volume 10.7 fL (9.4-12.4); Monocytes # 0.8 K/mcL (0.0-1.3); Monocytes % 7.2 %; Neutrophils # 8.9 K/mcL (1.6-8.9); Platelet Count 188 K/mcL (140-400); Red Blood Count 4.88 M/mcL (3.82-4.97); Red Cell Distribution Width 14.6 % (11.5-14.5); Segmented Neutrophils % 83.3 %; White Blood Count 10.7 K/mcL (4.3-11.1)
[2021-10-29 03:15] LABS: Alanine Aminotransferase 36 Units/L (7-52); Albumin 3.2 g/dL (3.5-5.7); Albumin/Globulin Ratio 1.3 (1.1-2.2); Alkaline Phosphatase 31 Units/L (34-104); Aspartate Amino Transferase 17 Units/L (13-39); BUN/Creatinine Ratio 48 (6-26); Bilirubin,Total 0.7 mg/dL (0.3-1.0); Blood Urea Nitrogen 27 mg/dL (8-23); Calcium 8.6 mg/dL (8.6-10.3); Carbon Dioxide 28 mEq/L (23-29); Chloride 106 mEq/L (98-107); Globulin 2.4 g/dL (2.4-3.5); Glucose 164 mg/dL (70-105); Osmolality,Calculated 301 (280-300); Sodium 141 mEq/L (136-145); Total Protein 5.6 g/dL (6.4-8.9); eGFR For African Americans > 60 (> 60); eGFR For Non-African Americans > 60 (> 60)
[2021-10-29] MEDS: Ipratropium 1 PUFF INHALER IH SCH ×6 (03:45→23:28)
[2021-10-29] MEDS: *HR* Enoxaparin 40 MG/0.4 ML SYRINGE SQ SCH (05:57)
[2021-10-29] MEDS: Budesonide/Formoterol 160/4.5 1 PUFF INH IH SCH ×2 (07:34→20:04)
[2021-10-29] MEDS: Multivit/Ca/Min/Fe/FA 1 TAB TABLET PO SCH (09:45)
[2021-10-29] MEDS: Cholecalciferol (D-3) 1,000 UNIT (25MCG) TABLET PO SCH (09:45)
[2021-10-29] MEDS: Saliva Stimulant 44.3ml BOTTLE PO SCH ×4 (09:46→19:52)
[2021-10-29] MEDS: Saline Nasal Spray 44 ML BOTTLE NS SCH ×4 (09:46→19:52)
[2021-10-29] MEDS: Aspirin 81 MG TAB.CHEW PO SCH (09:46)
[2021-10-29] MEDS: Insulin LISPRO 300 UNITS/3 ML VIAL SUBQ SCH ×3 (09:46→17:32)
[2021-10-29] MEDS: Artificial Tears SOLN 15 ML BOTTLE BOTH EYES SCH ×4 (09:46→19:52)
[2021-10-29] MEDS: Furosemide 20 MG/2 ML VIAL IVP SCH (09:47)
[2021-10-29] MEDS: Dexamethasone Sodium Phos/PF 10 MG/ML VIAL IVP SCH (09:49)
[2021-10-30] MEDS: Ipratropium 1 PUFF INHALER IH SCH ×6 (03:51→23:26)
[2021-10-30] MEDS: *HR* Enoxaparin 40 MG/0.4 ML SYRINGE SQ SCH (05:36)
[2021-10-30] MEDS: Insulin LISPRO 300 UNITS/3 ML VIAL SUBQ SCH ×3 (07:17→16:29)
[2021-10-30] MEDS: Budesonide/Formoterol 160/4.5 1 PUFF INH IH SCH ×2 (08:00→20:39)
[2021-10-30] MEDS: Cholecalciferol (D-3) 1,000 UNIT (25MCG) TABLET PO SCH (08:04)
[2021-10-30] MEDS: Aspirin 81 MG TAB.CHEW PO SCH (08:04)
[2021-10-30] MEDS: Multivit/Ca/Min/Fe/FA 1 TAB TABLET PO SCH (08:04)
[2021-10-30] MEDS: Furosemide 20 MG/2 ML VIAL IVP SCH (08:05)
[2021-10-30] MEDS: Saline Nasal Spray 44 ML BOTTLE NS SCH ×4 (08:06→19:41)
[2021-10-30] MEDS: Artificial Tears SOLN 15 ML BOTTLE BOTH EYES SCH ×4 (08:06→19:41)
[2021-10-30] MEDS: Dexamethasone Sodium Phos/PF 10 MG/ML VIAL IVP SCH (08:06)
[2021-10-30] MEDS: Saliva Stimulant 44.3ml BOTTLE PO SCH ×4 (08:06→19:41)
[2021-10-30 14:18] LABS: Hematocrit 46.1 % (35.3-44.9); Hemoglobin 14.5 g/dL (11.5-15.4); Mean Corpuscular HGB Conc 31.5 g/dL (31.6-35.5); Mean Corpuscular Hemoglobin 27.4 pg (28.0-33.3); Mean Corpuscular Volume 87.1 fL (83.0-100.0); Mean Platelet Volume 11.9 fL (9.4-12.4); Platelet Count 144 K/mcL (140-400); Red Blood Count 5.29 M/mcL (3.82-4.97); Red Cell Distribution Width 15.1 % (11.5-14.5)
[2021-10-30 14:19] LABS: White Blood Count 19.5 K/mcL (4.3-11.1)
[2021-10-30 14:38] LABS: BUN/Creatinine Ratio 48 (6-26); Blood Urea Nitrogen 29 mg/dL (8-23); Calcium 9.3 mg/dL (8.6-10.3); Carbon Dioxide 25 mEq/L (23-29); Chloride 104 mEq/L (98-107); Glucose 129 mg/dL (70-105); Osmolality,Calculated 302 (280-300); Potassium 4.1 mEq/L (3.5-5.1); Sodium 142 mEq/L (136-145); eGFR For African Americans > 60 (> 60); eGFR For Non-African Americans > 60 (> 60)
[2021-10-31] MEDS: Ipratropium 1 PUFF INHALER IH SCH ×6 (03:52→23:41)
[2021-10-31] MEDS: *HR* Enoxaparin 40 MG/0.4 ML SYRINGE SQ SCH (06:18)
[2021-10-31 06:23] LABS: Hematocrit 41.5 % (35.3-44.9); Mean Corpuscular HGB Conc 30.4 g/dL (31.6-35.5); Mean Corpuscular Volume 88.9 fL (83.0-100.0); Mean Platelet Volume 11.6 fL (9.4-12.4); Platelet Count 134 K/mcL (140-400); Red Blood Count 4.67 M/mcL (3.82-4.97); Red Cell Distribution Width 15.1 % (11.5-14.5); White Blood Count 11.6 K/mcL (4.3-11.1)
[2021-10-31 06:24] LABS: Hemoglobin 12.6 g/dL (11.5-15.4)
[2021-10-31 06:45] LABS: BUN/Creatinine Ratio 45 (6-26); Blood Urea Nitrogen 27 mg/dL (8-23); Calcium 8.6 mg/dL (8.6-10.3); Carbon Dioxide 28 mEq/L (23-29); Chloride 109 mEq/L (98-107); Glucose 75 mg/dL (70-105); Osmolality,Calculated 296 (280-300); Sodium 141 mEq/L (136-145); eGFR For African Americans > 60 (> 60); eGFR For Non-African Americans > 60 (> 60)
[2021-10-31] MEDS: Budesonide/Formoterol 160/4.5 1 PUFF INH IH SCH ×2 (08:17→20:05)
[2021-10-31] MEDS: Insulin LISPRO 300 UNITS/3 ML VIAL SUBQ SCH ×3 (08:51→17:32)
[2021-10-31] MEDS: Aspirin 81 MG TAB.CHEW PO SCH (08:52)
[2021-10-31] MEDS: Multivit/Ca/Min/Fe/FA 1 TAB TABLET PO SCH (08:52)
[2021-10-31] MEDS: Cholecalciferol (D-3) 1,000 UNIT (25MCG) TABLET PO SCH (08:52)
[2021-10-31] MEDS: Dexamethasone Sodium Phos/PF 10 MG/ML VIAL IVP SCH (08:53)
[2021-10-31] MEDS: Furosemide 20 MG/2 ML VIAL IVP SCH (08:54)
[2021-10-31] MEDS: Saliva Stimulant 44.3ml BOTTLE PO SCH ×4 (08:57→20:47)
[2021-10-31] MEDS: Saline Nasal Spray 44 ML BOTTLE NS SCH ×4 (08:57→20:47)
[2021-10-31] MEDS: Artificial Tears SOLN 15 ML BOTTLE BOTH EYES SCH ×4 (08:57→20:47)
[2021-11-01] MEDS: Ipratropium 1 PUFF INHALER IH SCH ×7 (03:55→23:48)
[2021-11-01 05:24] LABS: Hemoglobin 13.2 g/dL (11.5-15.4); White Blood Count 11.4 K/mcL (4.3-11.1)
[2021-11-01 05:26] LABS: Hematocrit 42.6 % (35.3-44.9); Mean Corpuscular Hemoglobin 27.7 pg (28.0-33.3); Mean Corpuscular Volume 89.5 fL (83.0-100.0); Mean Platelet Volume 11.5 fL (9.4-12.4); Red Blood Count 4.76 M/mcL (3.82-4.97)
[2021-11-01 05:30] LABS: BUN/Creatinine Ratio 44 (6-26); Blood Urea Nitrogen 24 mg/dL (8-23); Calcium 8.9 mg/dL (8.6-10.3); Carbon Dioxide 30 mEq/L (23-29); Chloride 106 mEq/L (98-107); Glucose 83 mg/dL (70-105); Osmolality,Calculated 295 (280-300); Potassium 4.4 mEq/L (3.5-5.1); Sodium 141 mEq/L (136-145); eGFR For African Americans > 60 (> 60); eGFR For Non-African Americans > 60 (> 60)
[2021-11-01] MEDS: *HR* Enoxaparin 40 MG/0.4 ML SYRINGE SQ SCH (05:40)
[2021-11-01] MEDS: Insulin LISPRO 300 UNITS/3 ML VIAL SUBQ SCH ×3 (07:17→17:20)
[2021-11-01] MEDS: Cholecalciferol (D-3) 1,000 UNIT (25MCG) TABLET PO SCH (07:32)
[2021-11-01] MEDS: Aspirin 81 MG TAB.CHEW PO SCH (07:33)
[2021-11-01] MEDS: Multivit/Ca/Min/Fe/FA 1 TAB TABLET PO SCH (07:33)
[2021-11-01] MEDS: Furosemide 20 MG/2 ML VIAL IVP SCH (07:33)
[2021-11-01] MEDS: Dexamethasone Sodium Phos/PF 10 MG/ML VIAL IVP SCH (07:33)
[2021-11-01] MEDS: Saliva Stimulant 44.3ml BOTTLE PO SCH ×4 (07:36→21:46)
[2021-11-01] MEDS: Saline Nasal Spray 44 ML BOTTLE NS SCH ×4 (07:36→21:46)
[2021-11-01] MEDS: Artificial Tears SOLN 15 ML BOTTLE BOTH EYES SCH ×4 (07:48→21:46)
[2021-11-01] MEDS: Budesonide/Formoterol 160/4.5 1 PUFF INH IH SCH ×2 (08:41→20:33)
[2021-11-01] MEDS ORDERED: Menthol 1 EACH LOZENGE PO PRN (15:39)
[2021-11-02] MEDS: Ipratropium 1 PUFF INHALER IH SCH ×4 (03:54→15:48)
[2021-11-02] MEDS: *HR* Enoxaparin 40 MG/0.4 ML SYRINGE SQ SCH (04:58)
[2021-11-02 07:50] VITALS: BP 143/73; PULSE 56; TEMP 97.1
[2021-11-02] MEDS: Budesonide/Formoterol 160/4.5 1 PUFF INH IH SCH (07:59)
[2021-11-02] MEDS: Insulin LISPRO 300 UNITS/3 ML VIAL SUBQ SCH ×2 (08:39→11:34)
[2021-11-02] MEDS: Multivit/Ca/Min/Fe/FA 1 TAB TABLET PO SCH (08:40)
[2021-11-02] MEDS: Aspirin 81 MG TAB.CHEW PO SCH (08:40)
[2021-11-02] MEDS: Cholecalciferol (D-3) 1,000 UNIT (25MCG) TABLET PO SCH (08:40)
[2021-11-02] MEDS: Saliva Stimulant 44.3ml BOTTLE PO SCH ×2 (08:40→11:34)
[2021-11-02] MEDS: Dexamethasone Sodium Phos/PF 10 MG/ML VIAL IVP SCH (08:41)
[2021-11-02] MEDS: Furosemide 20 MG/2 ML VIAL IVP SCH (08:41)
[2021-11-02] MEDS: Artificial Tears SOLN 15 ML BOTTLE BOTH EYES SCH ×2 (08:41→11:34)
[2021-11-02] MEDS: Saline Nasal Spray 44 ML BOTTLE NS SCH ×2 (08:41→11:34)
[2021-11-02 12:11] VITALS: O2SAT 94
== END 2021-11-02 15:51 | disposition home health service (06) | DRG 871 ==
LOC: 2NENU → SUATTDRO 20:16
PROVIDERS: ADMIT Internal Medicine; ATTEND Family Medicine